=== PATIENT | male | born 1955 | race Caucasian/White ===

== ENCOUNTER 2021-09-18 14:09 | Observation (INO) | payer MEDICARE ==
[2021-09-18] MEDS ORDERED: Sodium Chloride 0.9% 10 ML Syringe FLUSH PRN ×2 (14:22→16:14)
[2021-09-18 14:53] LABS: PTT,PARTIAL THROMBOPLSTIN TIME 25.1 SEC (22.0-34.0)
[2021-09-18 15:45] LABS: CORONAVIRUS COVID-19 NAA POSITIVE (NEGATIVE)
[2021-09-18] MEDS ORDERED: Albuterol/Ipratropium 3.0-0.5 MG/3 ML Neb Soln NEB PRN (15:54)
[2021-09-18] MEDS ORDERED: oxyCODONE 5 MG Tab PO PRN (15:54)
[2021-09-18] MEDS ORDERED: Ondansetron 4 MG/2 ML SDV IVPUSH PRN (15:54)
[2021-09-18] MEDS ORDERED: hydrALAZINE 20 MG/ML SDV IVPUSH PRN (16:01)
[2021-09-18] MEDS ORDERED: Azithromycin 500 MG in Sodium Chloride 0.9% 250 ML IV SCH (17:00)
[2021-09-18] MEDS ORDERED: diphenhydrAMINE 50 MG/ML SDV IVPUSH ONE (17:20)
[2021-09-18] MEDS: Metoprolol Tartrate 25 MG Tab PO SCH (17:29)
[2021-09-18] MEDS: amLODIPine 5 MG Tab PO SCH (17:29)
[2021-09-18] MEDS: Iron Polysaccharides Complex 150 MG Cap PO SCH (17:29)
[2021-09-18] MEDS: Acetaminophen 325 MG Tab PO PRN ×2 (17:34→23:45)
[2021-09-18] MEDS: Insulin Lispro 100 Units/ML 3 ML Vial SUBCUT SCH ×2 (18:01→21:45)
[2021-09-18] MEDS: Sodium Chloride 0.9% 1,000 ML IV SCH (19:32)
[2021-09-18] MEDS ORDERED: Naproxen 250 MG Tab PO PRN (19:35)
[2021-09-18] MEDS ORDERED: Dexamethasone 4 MG/ML SDV IVPUSH STA (20:07)
[2021-09-19] MEDS: Sodium Chloride 0.9% 1,000 ML IV SCH (02:13)
[2021-09-19] MEDS: Metoprolol Tartrate 25 MG Tab PO SCH ×2 (04:31→16:34)
[2021-09-19 07:12] LABS: HEMOGLOBIN A1C 6.5 % (<5.7)
[2021-09-19 07:13] LABS: ANION GAP 10.2 mEq/L (7-13)
[2021-09-19] MEDS ORDERED: REMDESIVIR 100 MG in Sodium Chloride 0.9% 100 ML IV SCH (08:00)
[2021-09-19] MEDS ORDERED: cefTRIAXone 1 GM in Sodium Chloride 0.9% 50 ML IV SCH (08:00)
[2021-09-19] MEDS ORDERED: REMDESIVIR 200 MG in Sodium Chloride 0.9% 250 ML IV ONE (08:01)
[2021-09-19] MEDS: Insulin Lispro 100 Units/ML 3 ML Vial SUBCUT SCH ×2 (08:39→12:44)
[2021-09-19] MEDS: amLODIPine 5 MG Tab PO SCH (08:41)
[2021-09-19] MEDS: Iron Polysaccharides Complex 150 MG Cap PO SCH (08:41)
[2021-09-19] MEDS ORDERED: Multivitamin Tab PO SCH (09:00)
[2021-09-19] MEDS: Acetaminophen 325 MG Tab PO PRN (10:29)
[2021-09-19] MEDS ORDERED: Pantoprazole 40 MG Tab.CR PO SCH (16:00)
[2021-09-20] MEDS ORDERED: REMDESIVIR 100 MG in Sodium Chloride 0.9% 100 ML IV SCH (08:00)
== END 2021-09-19 15:06 ==
LOC: DL.ED 14:09 → DL.MS 15:06 → UNDODISOB 09-19 14:25
PROVIDERS: ADMIT Internal Medicine; ATTEND Internal Medicine
DX: D64.9 Anemia, unspecified (principal); U07.1 COVID-19; T80.92XA Unspecified transfusion reaction, initial encounter; R70.1 Abnormal plasma viscosity; I10 Essential (primary) hypertension; I82.409 Acute embolism and thrombosis of unspecified deep veins of unspecified lower extremity; E11.65 Type 2 diabetes mellitus with hyperglycemia; Z79.4 Long term (current) use of insulin; Z79.899 Other long term (current) drug therapy; Z98.890 Other specified postprocedural states; Z79.1 Long term (current) use of non-steroidal anti-inflammatories (NSAID); Z79.01 Long term (current) use of anticoagulants; Z79.2 Long term (current) use of antibiotics; Z79.84 Long term (current) use of oral hypoglycemic drugs
CPT/HCPCS: 0240U; 36415; 36430; 51702; 80053; 81001; 82272; 82947; 83036; 83540; 83550; 83735; 84484; 85025; 85045; 85379; 85610; 85730; 86140; 86850; 86900; 86901; 86920; 86922; 87086; 87088; 87186; 93010; 96365; 96367; 96375; 99217; 99219; 99284; A9270; G0378; J0456; J0696; J1100; J1200; J1815; J7030; J7050; P9016

== ENCOUNTER 2021-09-24 19:06 | Emergency (ER) | payer MEDICARE ==
[2021-09-24] MEDS ORDERED: Acetaminophen/HYDROcodone 325-10 MG Tab PO ONE (22:26)
== END 2021-09-24 22:35 | disposition home or self-care (01) ==
LOC: DL.ED 19:06
DX: H57.12 Ocular pain, left eye (principal); E11.9 Type 2 diabetes mellitus without complications; Z79.899 Other long term (current) drug therapy; Z79.4 Long term (current) use of insulin; Z86.16 Personal history of COVID-19
CPT/HCPCS: 99283; A9270

== ENCOUNTER 2022-05-26 07:18 | Day surgery (SDC) | payer MEDICARE, BC ==
[2022-05-26] MEDS ORDERED: Dextrose 5%-0.45% NaCl 1,000 ML IV SCH (07:45)
[2022-05-26] MEDS ORDERED: Midazolam 1 MG/ML 2 ML SDV ONE (08:36)
[2022-05-26] MEDS ORDERED: fentaNYL 100 MCG/2 ML SDV ONE (08:36)
[2022-05-26] MEDS ORDERED: fentaNYL 100 MCG/2 ML SDV IV ONE ×4 (08:44→09:17)
[2022-05-26] MEDS ORDERED: Midazolam 1 MG/ML 2 ML SDV IV ONE ×7 (08:45→09:11)
== END 2022-05-26 10:20 | disposition home or self-care (01) ==
LOC: DL.ENDO 07:18
PROVIDERS: ATTEND Internal Medicine Gastroenterology
DX: C18.4 Malignant neoplasm of transverse colon (principal); D50.9 Iron deficiency anemia, unspecified; E11.9 Type 2 diabetes mellitus without complications; I10 Essential (primary) hypertension; Z79.84 Long term (current) use of oral hypoglycemic drugs; Z79.899 Other long term (current) drug therapy
CPT/HCPCS: 88305; 88341; 88342; J2250; J3010; J7042

== ENCOUNTER 2022-06-02 21:37 | Emergency (ER) | payer MEDICARE, BC ==
[2022-06-02 22:40] LABS: ANION GAP 15.1 mEq/L (7-13)
== END 2022-06-02 23:36 | disposition home or self-care (01) ==
LOC: DL.ED 21:37
DX: K59.00 Constipation, unspecified (principal); I10 Essential (primary) hypertension; E11.9 Type 2 diabetes mellitus without complications; Z86.16 Personal history of COVID-19; Z79.899 Other long term (current) drug therapy; Z79.84 Long term (current) use of oral hypoglycemic drugs
CPT/HCPCS: 36415; 74019; 80053; 83605; 85025; 87040; 99284

== ENCOUNTER 2022-10-05 00:09 | Emergency (ER) | payer MEDICARE, BC ==
[2022-10-05] MEDS ORDERED: Sodium Chloride 0.9% 10 ML Syringe FLUSH PRN (00:36)
[2022-10-05 01:03] LABS: BASOPHILS PERCENT AUTO 0.2 % (0.0-1.0); EOSINOPHILS PERCENT AUTO 0.3 % (1.0-3.0); HEMOGLOBIN 9.7 g/dL (14.0-18.0); LYMPHOCYTES PERCENT AUTO 13.8 % (20.5-50.1); MEAN CORPUSCULAR HGB CONC 32.3 g/dL (33.0-35.0); MEAN CORPUSCULAR VOLUME 83.6 fL (80-100); MONOCYTES PERCENT AUTO 8.4 % (2-8); NEUTROPHILS PERCENT AUTO 77.3 % (42.2-75.2); PLATELET COUNT,PLT 243 10^3/uL (150-450); RED BLOOD CELL COUNT 3.59 10^6/uL (4.6-6.2); WHITE BLOOD CELL COUNT,WBC 15.5 10^3/uL (5.0-10.0)
[2022-10-05 01:13] LABS: LACTIC ACID 0.7 mmol/L (0.4-2.0)
[2022-10-05 01:17] LABS: INR 1.2 (0.9-1.2); PTT,PARTIAL THROMBOPLSTIN TIME 31.8 SEC (22.0-34.0)
[2022-10-05 01:19] LABS: ALBUMIN 2.9 g/dL (3.4-5.0); BILIRUBIN TOTAL 0.4 mg/dL (0.2-1.0); BUN/CREATININE RATIO 22.1 (No establ ref range); CALCIUM 8.7 mg/dL (8.5-10.1); CREATININE 1.31 mg/dL (0.70-1.30); EST CRCL DRUG DOSING (CG) 59.24 mL/min; PROTEIN TOTAL,TP 7.3 g/dL (6.4-8.2)
[2022-10-05 01:32] LABS: A/G RATIO 0.66
[2022-10-05] MEDS ORDERED: Iopamidol 612 MG/ML 100 ML Bottle IVPUSH ONE (01:33)
[2022-10-05] MEDS ORDERED: HYDROmorphone 1 MG/ML Syringe IVPUSH ONE (02:02)
[2022-10-05] MEDS ORDERED: Tamsulosin 0.4 MG Cap.ER PO ONE (02:53)
[2022-10-05] MEDS ORDERED: Take Home: Acetaminophen/oxyCODONE 325-5 MG, 5 Tab Pack PO ONE (02:57)
[2022-10-05 04:05] LABS: APPEARANCE,URINE CLOUDY (CLEAR); BILIRUBIN,URINE NEGATIVE (NEGATIVE); COLOR,URINE YELLOW (YELLOW); GLUCOSE,URINE NEGATIVE (NEGATIVE); KETONES,URINE 15 (NEGATIVE); LEUKOCYTE ESTERASE,URINE SMALL (NEGATIVE); NITRITE,URINE POSITIVE (NEGATIVE); OCCULT BLOOD,URINE LARGE (NEGATIVE); PROTEIN,URINE 100 (NEGATIVE); UROBILINOGEN,URINE 0.2 mg/dL (0.2-1.0)
[2022-10-05 04:15] LABS: RBC,URINE 30-40 /HPF (0-5); WBC,URINE PACKED /HPF (0-5/HPF)
[2022-10-05 04:16] LABS: AMORPHOUS SEDIMENT,URINE MANY /HPF (NOT SEEN); BACTERIA,URINE MANY /HPF (0-FEW/HPF); EPITHELIAL CELLS,URINE NOT SEEN /HPF (NOT SEEN); MUCUS,URINE FEW /LPF (NOT SEEN)
[2022-10-05] MEDS ORDERED: Ertapenem 1 GM Vial IVPUSH ONE (04:36)
== END 2022-10-05 04:59 | disposition home or self-care (01) ==
LOC: DL.ED 00:09
DX: T83.511A Infection and inflammatory reaction due to indwelling urethral catheter, initial encounter (principal); N13.2 Hydronephrosis with renal and ureteral calculous obstruction; N39.0 Urinary tract infection, site not specified; I10 Essential (primary) hypertension; E11.9 Type 2 diabetes mellitus without complications; Z79.899 Other long term (current) drug therapy; Z79.84 Long term (current) use of oral hypoglycemic drugs; Z86.16 Personal history of COVID-19
CPT/HCPCS: 36415; 74177; 80053; 81001; 82150; 83605; 83690; 84145; 85025; 85610; 85730; 86140; 87086; 87088; 87186; 96374; 96375; 99284; A9270; J1170; J1335; Q9967; J3490

== ENCOUNTER 2022-10-06 18:51 | Observation (INO) | payer MEDICARE, BC ==
[2022-10-06] MEDS ORDERED: Ketorolac 30 MG/ML SDV IM ONE (19:25)
[2022-10-06] MEDS ORDERED: Morphine 2 MG/ML SYRINGE IVPUSH ONE ×2 (20:07→20:56)
[2022-10-06] MEDS ORDERED: Sodium Chloride 0.9% 10 ML Syringe FLUSH PRN (20:08)
[2022-10-06] MEDS ORDERED: Sodium Chloride 0.9% 1,000 ML IV ONE (20:09)
[2022-10-06 20:30] LABS: BASOPHILS PERCENT AUTO 0.2 % (0.0-1.0); EOSINOPHILS PERCENT AUTO 1.5 % (1.0-3.0); HEMATOCRIT 32.1 % (40.0-54.0); HEMOGLOBIN 10.3 g/dL (14.0-18.0); MEAN CORPUSCULAR HEMOGLOBIN 26.7 pg (27.0-34.0); MEAN CORPUSCULAR HGB CONC 32.1 g/dL (33.0-35.0); MEAN CORPUSCULAR VOLUME 83.2 fL (80-100); MONOCYTES PERCENT AUTO 8.7 % (2-8); NEUTROPHILS PERCENT AUTO 76.6 % (42.2-75.2); PLATELET COUNT,PLT 286 10^3/uL (150-450); RED BLOOD CELL COUNT 3.86 10^6/uL (4.6-6.2); WHITE BLOOD CELL COUNT,WBC 10.2 10^3/uL (5.0-10.0)
[2022-10-06 20:45] LABS: ANION GAP 16.2 mEq/L (7-13); CALCIUM 9.5 mg/dL (8.5-10.1); CREATININE 1.94 mg/dL (0.70-1.30); POTASSIUM,K 4.2 mmol/L (3.5-5.1)
[2022-10-06] MEDS ORDERED: fentaNYL 100 MCG/2 ML SDV IVPUSH ONE (21:34)
[2022-10-06] MEDS ORDERED: Naloxone 2 MG/2 ML Syringe IVPUSH PRN (21:34)
[2022-10-06] MEDS ORDERED: Sodium Chloride 0.9% 1,000 ML IV SCH (21:45)
[2022-10-06] MEDS ORDERED: Ondansetron 4 MG Tab.DIS PO PRN (22:15)
[2022-10-06] MEDS ORDERED: HYDROmorphone 0.5 MG/0.5 ML Syringe IVPUSH PRN (22:15)
[2022-10-06] MEDS ORDERED: Acetaminophen 325 MG Tab PO PRN (22:15)
[2022-10-06] MEDS ORDERED: Acetaminophen/oxyCODONE 325-5 MG Tab PO SCH (22:30)
[2022-10-06] MEDS: Dextrose 5%-0.45% NaCl 1,000 ML IV SCH (22:48)
[2022-10-06] MEDS: cefTRIAXone 2 GM Vial IVPUSH SCH (23:03)
[2022-10-06] MEDS ORDERED: Acetaminophen/oxyCODONE 325-5 MG Tab PO PRN (23:50)
[2022-10-07] MEDS: HYDROmorphone 0.5 MG/0.5 ML Syringe IVPUSH PRN ×6 (00:34→12:57)
[2022-10-07] MEDS ORDERED: Ondansetron 4 MG/2 ML SDV IVPUSH PRN (01:14)
[2022-10-07] MEDS: Dextrose 5%-0.45% NaCl 1,000 ML IV SCH (05:19)
[2022-10-07 06:34] LABS: BASOPHILS PERCENT AUTO 0.2 % (0.0-1.0); EOSINOPHILS PERCENT AUTO 0.3 % (1.0-3.0); HEMATOCRIT 30.9 % (40.0-54.0); HEMOGLOBIN 9.9 g/dL (14.0-18.0); LYMPHOCYTES PERCENT AUTO 11.4 % (20.5-50.1); MEAN CORPUSCULAR HEMOGLOBIN 26.4 pg (27.0-34.0); MEAN CORPUSCULAR VOLUME 82.4 fL (80-100); MONOCYTES PERCENT AUTO 8.4 % (2-8); NEUTROPHILS PERCENT AUTO 79.7 % (42.2-75.2); PLATELET COUNT,PLT 284 10^3/uL (150-450); RED BLOOD CELL COUNT 3.75 10^6/uL (4.6-6.2); WHITE BLOOD CELL COUNT,WBC 10.4 10^3/uL (5.0-10.0)
[2022-10-07 06:46] LABS: CALCIUM 8.5 mg/dL (8.5-10.1); CREATININE 1.58 mg/dL (0.70-1.30); EST CRCL DRUG DOSING (CG) 49.11 mL/min
[2022-10-07] MEDS ORDERED: amLODIPine 5 MG Tab PO SCH (09:00)
[2022-10-07] MEDS: cefTRIAXone 2 GM Vial IVPUSH SCH (09:07)
[2022-10-07] MEDS ORDERED: Acetaminophen/oxyCODONE 325-5 MG Tab PO PRN (10:06)
[2022-10-07] MEDS ORDERED: Latanoprost 0.005% Ophth Soln 2.5 ML Bottle EYELF SCH (21:00)
== END 2022-10-07 13:07 | disposition home or self-care (01) ==
LOC: DL.ED 18:51 → DL.MS 22:15 → UNDOADMOB 22:15
PROVIDERS: ADMIT Hospitalist; ATTEND Hospitalist
DX: N10 Acute pyelonephritis (principal); N20.0 Calculus of kidney; N39.0 Urinary tract infection, site not specified; I10 Essential (primary) hypertension; M19.90 Unspecified osteoarthritis, unspecified site; H40.9 Unspecified glaucoma; E11.9 Type 2 diabetes mellitus without complications; Z79.84 Long term (current) use of oral hypoglycemic drugs; Z79.2 Long term (current) use of antibiotics; Z79.899 Other long term (current) drug therapy; Z87.448 Personal history of other diseases of urinary system
CPT/HCPCS: 36415; 51702; 80048; 85025; 96361; 96374; 96375; 96376; 99284; A9270; G0378; J0696; J1170; J2270; J2405; J3010; J7030; J7042; 99222; 99239; J3490